=== PATIENT | male | born 1945 | race Caucasian/White ===

== ENCOUNTER 2020-10-18 07:26 | Emergency (ER) | payer OTHER ==
--- OUTSIDE RECORDS SUMMARY | 2020-10-18 07:28 | XMS REPORT | Continuity of Care Document ---
:1945 Author Organization [facility] t Address [address] [place] [address] Care Team Providers Name Role Phone Unavailable Unavailable Unavailable Payers Payer Name Policy Type Policy Number Effective Date Expiration Date S ource Problems This patient has no known problems. Allergies, Adverse Reactions, Alerts Allergy Allergy Status Severity Reaction(s) Onset Inactive Treating Comm ents Source Name Type Date Date Clinician No Known DA Active U 2016-11 [facility] Allergie 14 Clear s 00:00: [place] [address] [place] [address] Medications This patient has no known medications. Procedures This patient has no known procedures. Results Test Description Test Time Test Comments Results Result Comments Source GLUBED 2020-10-13 08:03:00 Test Item Value Reference Range Interpretation Comme nts GLUBED (test code = GLUBED) 108 mg/dL 60-125 N BASIC METABOLIC [id number] 06:38:00 Test Item Value Reference Range Interpretation Comments SODIUM (test code = 136 mmol/L 136-145 N NA) POTASSIUM (test code = 5.2 mmol/L 3.5-5.1 H K) CHLORIDE (test code = 99.0 mmol/L 98-107 N CL) CARBON DIOXIDE (test 24.3 mmol/L 21-32 N code = CO2) GLUCOSE (test code = 168 mg/dL 70-110 H GLU) BLOOD UREA NITROGEN 22 mg/dL 7-18 H (test code = BUN) GLOMERULAR FILTRATION 44.5 >60 Unit o f measure: RATE (test code = GFR) mL/mi n/1.73 [id number] Range:Healthy A dults >90 mL/min/1.73 m2 For Chronic Kidney Disease: St age II Mild Dec rease in GFR 6 0-90 Stage III Moderate Decrea se in GFR 30-59 Stage IV Se [place]incoln Decrease in GFR 15-29 Stage V Kidney Failur e <15 CREATININE (test code 1.54 mg/dL 0.55-1.30 H = CREAT) CALCIUM (test code = 9.1 mg/dL 8.2-10.1 N CA) SPECIMEN COMMENT: POD #[id number] 06:01:00 Test Item Value Reference Range Interpretation Comments HEMOGLOBIN (test code = HGB) 12.5 g/dL 12-16 N HEMATOCRIT (test code = HCT) 36.6 % 37-47 L SPECIMEN COMMENT: POD #[id number] 14:47:00 Test Item Value Reference Range Interpretation Comments GLUBED (test code = GLUBED) 99 mg/dL 60-125 N Novel Coronavirus 2019 [id number] 16:02:00 Test Item Value Reference Range Interpretation Comments Novel Coronavirus Negative Negative Positive r esults are 2019 Inhouse (test indicativ e of the presence code = COVNONPUI) ofSARS-CoV -2 RNA, clinical correlation wit h patient historyand othe r diagnostic info rmation is necessary to determinepatien t infection status. Positiv e results do not rule out bacterial infection or co -infection with other viru ses. Negative result s do not preclude SARS-C oV-2 infection andsh ould not be used as the delmi e basis for patient managementdecis ions. Negative result s must be combined with otherclinical observations, p atient history, and epidemiological information . Detection of SARS-CoV-2 RNA may be affe cted bysample collec tion methods, storag e conditions, and /or stageof infection. Carolin l RNA mutations, vacc inations, antiviraltherap eutics, antibiotics, chemotherapeuti c orimmunosuppres marsha drugs have not been e valuated for effectson d etection. Results are for the identification of SARS-CoV-2 RNA usingthe Urakkamaailma[employer]fi M2000 Sy stem under the FDA Emergen cy UseAuthorizatio n. The testing is perf ormed by personneltraine d in the procedures for the Jaime M2000 molecular diagnostic SARS-CoV-2 assa y in vitro. SPECIMEN COMMENT: NNovel Coronavirus 2019 [id number] 16:02:00 Test Item Value Reference Range Interpretation Comments Novel Coronavirus Negative Negative Positive r esults are 2019 Inhouse (test indicativ e of the presence code = COVNONPUI) ofSARS-CoV -2 RNA, clinical correlation wit h patient historyand othe r diagnostic info rmation is necessary to determinepatien t infection status. Positiv e results do not rule out bacterial infection or co -infection with other viru ses. Negative result s do not preclude SARS-C oV-2 infection andsh ould not be used as the delmi e basis for patient managementdecis ions. Negative result s must be combined with otherclinical observations, p atient history, and epidemiological information . Detection of SARS-CoV-2 RNA may be affe cted bysample collec tion methods, storag e conditions, and /or stageof infection. Carolin l RNA mutations, vacc inations, antiviraltherap eutics, antibiotics, chemotherapeuti c orimmunosuppres marsha drugs have not been e valuated for effectson d etection. Results are for the identification of SARS-CoV-2 RNA usingthe Jaime M2000 Sy stem under the FDA Emergen cy UseAuthorizatio n. The testing is perf ormed by personneltraine d in the procedures for the Jaime M2000 molecular diagnostic SARS-CoV-2 assa y in vitro. SPECIMEN COMMENT: NVITAMIN D 25-HYDROXY (TOTAL)2020-10-06 09:33:00 Test Item Value Reference Range Interpretation Comments VITAMIN D 24.3 ng/mL 30.0-100.0 L Vitamin D defic iency has 25-HYDROXY (TOTAL) been defi aye by the (test code = [place] ofMed icine and VITD25) an Endocrine So ety practice guidel ine as alevel of serum 25-OH vitamin D less than 20 ng/mL (1,2).The Endocrine Society went on to further define vitamin Dinsufficiency as a level between 21 and 29 ng/mL (2).1. IOM (Ins titute of Medicine). 2010 . Dietary reference int akes for calcium and D. [place]: The [employer] .2. Emily MF, Geri NC, Rommel i GRAY, et al. Evaluatio n, treatment, and prevention of vitamin D deficiency: an Endocrine Society clinica l practice guideline. VIRGIL EM. 2010; 96(7):1911-30.P erformed At: [facility] [id number] [place], [place] [id number] Parish Morrow MD Ph:[phone] GLYCOSYLATED HEMOGLOBIN (HA1C)2020-10-05 17:47:00 Test Item Value Reference Range Interpretation Comments GLYCOSYLATED 5.6 % 4.8-5.9 N Any condition t hat shortens HEMOGLOBIN (HA1C) erythocyte survival or (test code = GLYHGB) decreas esmean erythrocyte age (e.g., bhavna very from acute blood los s,hemolytic anemia) will fa lsely lower HGBA1c resultsr egardless of the method used . HGBA1c results from pa nuzhatntswith HbSS, HbCC, and HbSc must be interpreted with cautiongiven th e pathological pr ocesses, including anemi a,increased red cell turnov er, transfusion req uirements, thatadversely i mpact HGBA1c as a marker of long-term glycemiccontrol . Alternative for ms of testing such as fructosaminesho uld be considered for these patients. GLYCOSYLATED HEMOGLOBIN (HA1C)2020-10-05 17:47:00 Test Item Value Reference Range Interpretation Comments GLYCOSYLATED 5.6 % 4.8-5.9 Any condition t hat shortens HEMOGLOBIN (HA1C) erythocyte survival or (test code = GLYHGB) decreas esmean erythrocyte age (e.g., bhavna very from acute blood los s,hemolytic anemai) will fa lsely lower HGBA1c resultsr egardless of the method used . HGBA1c results frompat ients with HbSS, HbCC and HbSc must be interpreted wit hcaution given the patho logical processes, incl uding anemia,increase d red cell turnover, trans fusion requirements, t hatadversely impact HGBA1c a s a marker of long-term glycemiccontrol . Alternative for ms of testing such as fructosaminesho uld be considered for these patients.Any co ndition that shortens erytho cyte survival or dec reasesmean erythrocyte age (e.g., recovery from a cute blood loss,hemolytic anemia) will falsely lower H GBA1c resultsregardle ss of the method used. H GBA1c results from mejia albarran HbSS, HbCC, and HbSc must be interpreted with cautiongiven th e pathological pr ocesses, including anemi a,increased red cell turnov er, transfusion req uirements, thatadversely i mpact HGBA1c as a marker of long-term glycemiccontrol . Alternative for ms of testing such as fructosaminesho uld be considered for these patients.DONE A T: [facility] [id number] [facility] [address] [place], [place] [phone] - USG NDL PLACEMENT (Bxg/Asp)2020-10-05 13:13:00 [facility] : 1945 Sex: M Patient Name: APOLINAR DIETZ Unit No: [id number] EXAMS: CPT CODE: [id number] USG NDL PLACEMENT (Bxg/Asp) 02126 INDICATION: Right knee pain. PROCEDURE: Ultrasound guided cryoanalgesia (Iovera) of the right anterior femoral cutaneous nerve, and the superior and inferior branches of the infrapatellar branch of the saphenous nerve. BINDERY OPERATOR: Dr. Zamorano. MEDICATIONS: 1 % Lidocaine local anesthesia CONTRAST: None. COMPLICATION: None immediately evident. DESCRIPTION: After the procedure, including indication and potential complications had been discussed with the patient and questions answered, written informed consent was obtained. The patient was then takento the ultrasound suite and placed on the table in supine position with their treatment leg fully extended. The skin of the right knee was evaluated sonographically. The skin over the anterior femoral cutaneous nerve, medial femoral cutaneous nerve, and the superior and inferior branches of the infrapatellar branch of the saphenous nerve was marked. The skin was then prepped and draped sterilely. A time out was performed. After achieving 1% Lidocaine local anesthesia, the 55mm Smart Tip Iovera cryoanalgesia probe was inserted into the skin at the sites where the nerves had been identified by ultrasound, and the treatment was initiated. The duration of each treatment cycle was 1 minute and 10 seconds. The patent's skin was cleaned and the wound was covered with a band-aid. The patient was instructed to stand and mobilize the knee joint. No immediate complication were observed. The patient tolerated the procedure well and was subsequently discharged in stable condition with instructions for follow up. IMPRESSION: Cryoanalgesia of the right anterior femoral cutaneous nerve, and the superior and inferior branches of the infrapatellarbranch of the saphenous nerve as above. at 1313 Reported and signed by: Ja Zamorano MD CC: Kranthi Leary MD Technologist: INEZ YOUNG RDMS, RVT Transcribed D/ (2682) [id number] [facility] NAME: APOLINAR DIETZ [id number] [facility] PHYS: Kranthi Paez MD : 1945 AGE: 75 SEX: [place] [address] LOC: Y.RAD PHONE #: [phone] EXAM DATE: 10/05/2020 STATUS: REG CLI FAX #: [phone] RAD #: D/C DT PAGE 1 Signed Report Patient Name: APOLINAR DIETZ Unit No: [id number] EXAMS: CPT CODE: [id number] USG NDL PLACEMENT (Bxg/Asp) 08017 <Continued> Orig Print D/T: S: 10/05/2020 (3479) [facility] NAME: APOLINAR DIETZ [id number] [facility] PHYS: Kranthi Paez MD : 1945 A GE: 75 SEX: M [place] [address] LOC: HERIBERTO PHONE #: [phone] EXAM DATE: 10/05/2020 STATUS: REG CLI FAX #: [phone] RAD #: D/C DT PAGE 2 Signed ReportPROTHROMBIN [id number] 12:53:00 Test Item Value Reference Range Interpretation Comments PROTHROMBIN TIME 10.9 secs 10.1-12.5 N PATIENT (test code = PTP) INTERNATIONAL NORMAL 0.97 <2.0 RECOMME NDED THERAPEUTIC RATIO (test code = RANGE FOR ORAL INR) ANTICOAGULANTTR EATMENT: CONDI TION INRProphylaxis of venous thrombos is in 2.0 - 3.0 high-risk medic al or surgical patientsTreatme nt of venous thrombos is 2.0 - 3.0Prevention o f embolism 2.0 - 3.0Prevention o f recurrent embol ism, or 3.0 - 4. 5 patients with mechanical pros thetic intravascular v armstrong IS PATIENT ON ANTICOAGULANTS ? [facility] been notified if Patient is on Heparin Drip? NOTHROMBOPLASTIN TIME [id number] 12:53:00 Test Item Value Reference Range Interpretation Comments PTT ACTIVATED (test code = APTT) 35.6 secs 24.9-37.0 N IS PATIENT ON ANTICOAGULANTS ? [facility] been notified if Patient is on Heparin Drip? NOCOMPREHENSIVE METABOLIC [id number] 12:33:00 Test Item Value Reference Range Interpretation Comments SODIUM (test code = 139 mmol/L 136-145 N NA) POTASSIUM (test code = 4.2 mmol/L 3.5-5.1 N K) CHLORIDE (test code = 102.0 mmol/L 98-107 N CL) CARBON DIOXIDE (test 26.2 mmol/L 21-32 N code = CO2) GLUCOSE (test code = 114 mg/dL 70-110 H GLU) BLOOD UREA NITROGEN 31 mg/dL 7-18 H (test code = BUN) GLOMERULAR FILTRATION 49.7 >60 Unit o f measure: RATE (test code = GFR) mL/mi n/1.73 [id number] Range:Healthy Adults >90 mL/min/1.73 m2 For Chronic Kidney Disease: St age II Mild Decrease in GFR 60-90 St age III Moderate Decrease in GFR 30-59 Stage IV Severe Decre ase in GFR 15- 29 Stage V Kidney Failure <15 CREATININE (test code 1.40 mg/dL 0.55-1.30 H = CREAT) TOTAL PROTEIN (test 7.4 g/dL 6.4-8.2 N code = PROT) ALBUMIN (test code = 4.1 g/dL 3.4-5.0 N ALB) GLOBULIN (test code = 3.3 g/dL 2.2-4.2 N GLOB) ALBUMIN/GLOBULIN RATIO 1.2 0.7-2.0 N (test code = A/G) CALCIUM (test code = 9.0 mg/dL 8.2-10.1 N CA) BILIRUBIN TOTAL (test 0.80 mg/dL 0.2-1.00 N code = BILT) SGOT/AST (test code = 15.0 U/L 15-37 N AST) SGPT/ALT (test code = 26.0 U/L 12-78 N Please note new ALT) normal range. ALKALINE PHOSPHATASE 96 U/L 46-116 N TOTAL (test code = ALKP) CBC W/AUTO [id number] 11:22:00 Test Item Value Reference Range Interpretation Comments WHITE BLOOD CELL (test code = WBC) 6.6 K/mm3 5.7-10.5 N RED BLOOD CELL (test code = RBC) 4.40 M/mm3 4.2-5.4 N HEMOGLOBIN (test code = HGB) 13.8 g/dL 12-16 N HEMATOCRIT (test code = HCT) 39.9 % 37-47 N MEAN CELL VOLUME (test code = MCV) 91 fL 80-98 N MEAN CELL HGB (test code = MCH) 31.4 pg 27-34 N MEAN CELL HGB CONCENTRATION (test 34.6 g/dL 30.8-34.1 H code = MCHC) RED CELL DISTRIBUTION WIDTH (test 12.2 % 11-16 N code = RDW) PLT (test code = PLT) 197 K/mm3 130-400 N MEAN PLATELET VOLUME (test code = 11.2 fL 8.9-12.1 N MPV) NEUTROPHIL % (test code = NT%) 68.9 % 45-70 N LYMPHOCYTE % (test code = LY%) 18.9 % 20-40 L MONOCYTE % (test code = MO%) 9.8 % 3-10 N EOSINOPHIL % (test code = EO%) 1.8 % 1-5 N BASOPHIL % (test code = BA%) 0.3 % 0.0-1.1 N NEUTROPHIL # (test code = NT#) 4.51 K/mm3 2.00-7.50 N LYMPHOCYTE # (test code = LY#) 1.24 K/mm3 1.50-4.00 L MONOCYTE # (test code = MO#) 0.64 K/mm3 0.2-0.8 N EOSINOPHIL # (test code = EO#) 0.12 K/mm3 0.04-0.4 N BASOPHIL # (test code = BA#) 0.02 K/mm3 0.02-0.10 N MANUAL DIFF REQUIRED (test code = NO MANUAL DIFF MDIFF) NUCLEATED RED BLOOD CELL (test 0 % 0-0 N code = NRBC)
[2020-10-18] MEDS ORDERED: NA CHLORIDE 0.9% 500 ML ONE (08:13)
[2020-10-18 08:27] LABS: Absolute Lymphocytes (CBC) 0.5 K/uL (0.7-4.9); Basophils % 0.1 % (0-1.3); Hematocrit 31.1 % (39.6-49.0); Lymphocytes % 3.5 % (15.3-44.8); MPV 9.1 fL (7.6-11.3); RBC Red Blood Cell Count 3.37 M/uL (4.33-5.43)
[2020-10-18 08:39] LABS: Potassium 4.1 mmol/L (3.5-5.1)
--- NOTE | 2020-10-18 09:03 | RAD REPORT ---
EXAM DESCRIPTION: CT - Head Brain Wo Cont - 10/18/2020 8:37 am CLINICAL HISTORY: fall, weakness, head trauma COMPARISON: No comparisonsNo comparisons TECHNIQUE: Axial 5 mm thick images of the head were obtained without IV contrast. All CT scans are performed using dose optimization technique as appropriate and may include automated exposure control or mA/KV adjustment according to patient size. FINDINGS: No intracranial hemorrhage, mass, edema or shift of mid-line structures. No acute infarcti on changes seen. No abnormal extra-axial fluid collections. Moderate severity atrophy changes are pre sent. Ventricles are in proportion to the amount of volume loss. Chronic ischemic change appears mini mal. Mastoid air cells and visualized portions of the paranasal sinuses are clear. No acute bony findings. IMPRESSION: No hemorrhage, acute infarction or other acute intracranial finding. Moderate severity atrophy with ventricles in proportion to volume loss.
--- NOTE | 2020-10-18 09:05 | RAD REPORT ---
EXAM DESCRIPTION: CT - Thorax Wo Con - 10/18/2020 8:37 am CLINICAL HISTORY: right sided rib pain, fall COMPARISON: No comparisons TECHNIQUE: Axial 5 mm thick images of the chest were obtained without IV contrast. All CT scans are performed using dose optimization technique as appropriate and may include automated exposure control or mA/KV adjustment according to patient size. FINDINGS: No pulmonary contusion or acute lung parenchymal process. Multiple calcified pleural plaqu es are present without associated mass component. No pneumothorax. No abnormal mediastinal or hilar masses or lymphadenopathy seen. No gross aortic or pulmonary artery finding suspected. Assessment is limited in the absence of IV contrast. No chest wall mass or abnormal axillary lymphadenopathy. No rib fracture or acute bone process identifiable. IMPRESSION: No rib fracture, pulmonary contusion or pneumothorax. Calcified pleural plaques without associated soft tissue mass component.
[2020-10-18] MEDS ORDERED: HYDROCODONE/APAP 5/325 MG TAB ONE (10:01)
--- NOTE | 2020-10-18 10:02 | RAD REPORT ---
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 No loosening findings. The joint effusion and soft tissue air densities seen on the lateral vi ew are not outside of normal range given the approximately 1 week postop history. No soft tissue fore ign body. IMPRESSION: No acute bone or joint finding identified. The air and fluid in the soft tissues within normal limits for 1 week postop status.
--- NOTE | 2020-10-18 10:03 | RAD REPORT ---
EXAM DESCRIPTION: RAD - Chest Single View - 10/18/2020 8:16 am CLINICAL HISTORY: CHEST PAIN COMPARISON: None TECHNIQUE: AP portable chest image was obtained 10/18/2020 8:16 am . FINDINGS: Lung volumes are low. No peripheral mass or consolidation. Interstitial pattern is promine nt with baseline unknown. Interstitial pattern is most likely chronic baseline rather than any signif icant infiltrate or edema. Failure and volume overload are not suspected. Heart and vasculature are n ormal. No measurable pleural effusion and no pneumothorax. No acute bony abnormality seen. No acute a ortic findings suspected. IMPRESSION: No pneumothorax, pulmonary contusion or acute traumatic injury to the chest.
[2020-10-18] MEDS ORDERED: VANCOMYCIN/NS 1 gm 1 GM/250 ML BAG IVPB ONE (11:00)
--- NOTE | 2020-10-18 11:02 | EDPHYS ---
Physician Documentation [facility] Name: Brandon Silverio Age: 75 yrs Sex: Male : 1945 Arrival Date: 10/18/2020 Time: 07:26 Bed 19 Private MD: ED Physician Ethan Ruelas HPI: 10/18 10:25 This 75 yrs old Male presents to ER via EMS with complaints of Fall Injury, rn General Weakness. 10:25 Details of fall: The patient fell from a height. Onset: The symptoms/episode rn began/occurred this morning. Associated injuries: The patient sustained injury to the chest, pain with movement. Severity of symptoms: At their worst the symptoms were mild, in the emergency department the symptoms are unchanged. The patient has not experienced similar symptoms in the past. The patient has been recently seen by a physician:. Reports right knee replacement this past Monday, at [facility], has not been eating/drinking since then with generalized weakness/malaise. Reports increased pain to right knee with redness. Not sure if hit head on fall but does report right rib pain with movement and palpation. NO LOC. Remembers all events. . 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 - Social history:: Smoking status: Patient denies any tobacco usage or history of. - Family history:: not pertinent. - Hospitalizations: : Patient was recently seen at. ROS: 10:25 Constitutional: Negative for fever, chills, and weight loss, Eyes: Negative for injury, rn pain, redness, and discharge, Neck: Negative for injury, pain, and swelling, Cardiovascular: Negative for palpitations, and edema, Respiratory: Negative for shortness of breath, cough, wheezing Abdomen/GI: Negative for abdominal pain, nausea, vomiting, diarrhea, and constipation, Back: Negative for injury and pain, MS/Extremity: + right knee pain and swelling Skin: + redness around right knee Neuro: Negative for headache, weakness, numbness, tingling, and seizure. Exam: 10:25 Constitutional: This is a well developed, well nourished patient who is awake, alert, rn and in no acute distress. Head/Face: Normocephalic, atraumatic. Eyes: Pupils equal round and reactive to light, extra-ocular motions intact. ENT: Dry MM, no oral trauma Neck: No vertebral point tenderness. Chest/axilla: Normal chest wall appearance and motion. No crepitus, + mild tenderness right posterior/lateral ribs. Cardiovascular: Regular rate and rhythm. No pulse deficits. Respiratory: No increased work of breathing, no retractions or nasal flaring. Abdomen/GI: Soft, non-tender MS/ Extremity: Pulses equal, no cyanosis. + mild swelling RLE with redness and warmth around right knee, sutures intact, no purulence or drainage. No streaking. + blanching erythema. Neuro: Awake and alert, GCS 15, oriented to person, place, time, and situation. Cranial nerves II-XII grossly intact. Motor strength 4/5 in all extremities. Sensory grossly intact. Vital Signs: 07:36 BP 105 / 71; Pulse 87; Resp 16; Temp 98.8; Pulse Ox 96% on R/A; Weight 86.18 kg; Height iw 5 ft. 11 in. (180.34 cm); Pain 9/10; 08:30 BP 102 / 59; Pulse 88; Resp 17; Pulse Ox 96% ; rb3 10:30 BP 95 / 68; Pulse 81; Resp 18; Pulse Ox 95% ; rb3 11:30 BP 101 / 58; Pulse 82; Resp 16; Pulse Ox 99% ; rb3 12:30 BP 102 / 58; Pulse 84; Resp 16; Pulse Ox 98% ; rb3 13:40 BP 102 / 59; Pulse 82; Resp 17; Pulse Ox 97% ; rb3 14:20 BP 94 / 53; Pulse 80; Resp 17; Pulse Ox 16% ; rb3 07:36 Body Mass Index 26.50 (86.18 kg, 180.34 cm) iw MDM: 07:30 Patient medically screened. rn 10:08 ED course: Consulted with on-call physician for Dr. Leary, reports Dr. Leary has rn privileges at [facility], will need to be transferred for evaluation and consultation, admit to hospitalist, transfer initiated. . 10:59 Differential diagnosis: contusion, fracture, post-op infection, DVT, rib fracture. Data rn reviewed: vital signs, nurses notes, lab test result(s), radiologic studies, CT scan, plain films, and as a result, I will admit patient. Counseling: I had a detailed discussion with the patient and/or guardian regarding: the historical points, exam findings, and any diagnostic results supporting the discharge/admit diagnosis, lab results, radiology results, the need to transfer to another facility, for higher level of care, [facility] does not immediately have the required specialist. Response to treatment: the patient's symptoms have mildly improved after treatment, and as a result, I will admit patient. 10/18 07:37 Order name: CBC with Diff; Complete Time: 09:18 rn 10/18 07:37 Order name: Basic Metabolic Panel; Complete Time: 09:18 rn 10/18 07:37 Order name: XRAY Knee RIGHT 3 view; Complete Time: 10:06 rn 10/18 07:37 Order name: Procalcitonin; Complete Time: 09:18 rn 10/18 07:37 Order name: Blood Culture Adult (2) rn 10/18 07:37 Order name: CT Head Brain wo Cont; Complete Time: 09:18 rn 10/18 07:37 Order name: IV Start; Complete Time: 08:00 rn 10/18 07:37 Order name: CT Chest Wo Con; Complete Time: 09:18 rn 10/18 07:37 Order name: XRAY Chest (1 view); Complete Time: 10:06 rn 10/18 10:31 Order name: Extremity Venous Uni Ltd US; Complete Time: 14:20 rn Administered Medications: 08:21 Drug: NS 0.9% 500 ml Route: IV; Rate: bolus; Site: left antecubital; rb3 09:13 Follow up: IV Status: Completed infusion rb3 09:49 Drug: Romeo 5 mg-325 mg 1 tabs Route: PO; rb3 10:30 Follow up: Response: No adverse reaction; Pain is decreased rb3 11:00 Drug: vancoMYCIN 1 grams Route: IVPB; Infused Over: 2 hrs; Site: left antecubital; rb3 13:20 Follow up: Response: No adverse reaction; IV Status: Completed infusion rb3 Disposition: 10/18/20 11:02 Transfer ordered to [facility]. Diagnosis are Acute kidney failure, Weakness, Possible post-operative infection/cellulitis. - Reason for transfer: Higher level of care. - Accepting physician is . - Condition is Stable. - Problem is new. - Symptoms have improved. Signatures: Dispatcher [employer] EDGabby Abdullahi RN RN Ethan Santos MD MD rn Acob, MARKEL Cee RN Sondra Calero RN RN rb3 Corrections: (The following items were deleted from the chart) 10:28 10:25 Constitutional: Negative for fever, chills, and weight loss, Eyes: Negative for rn injury, pain, redness, and discharge, Neck: Negative for injury, pain, and swelling, Cardiovascular: Negative for palpitations, and edema, Respiratory: Negative for shortness of breath, cough, wheezing Abdomen/GI: Negative for abdominal pain, nausea, vomiting, diarrhea, and constipation, Back: Negative for injury and pain, MS/Extremity: + right knee pain and swelling Skin: + redness around right knee Neuro: Negative for headache, weakness, numbness, tingling, and seizure, rn 14:39 11:02 10/18/2020 11:02 Transfer ordered to [facility]. ca1 Diagnosis is Acute kidney failure; Weakness; Possible post-operative infection/cellulitis. Reason for transfer: Higher level of care. Accepting physician is . Condition is Stable. Problem is new. Symptoms have improved. rn
--- NOTE | 2020-10-18 11:02 | ER ---
Nurse's Notes [facility] Name: Brandon Silverio Age: 75 yrs Sex: Male : 1945 Arrival Date: 10/18/2020 Time: 07:26 Bed 19 Private MD: Diagnosis: Acute kidney failure;Weakness;Possible post-operative infection/cellulitis Presentation: 10/18 07:30 Coronavirus screen: At this time, the client does not indicate any symptoms associated rb3 with coronavirus-19. Initial Sepsis Screen: Does the patient meet any 2 criteria? No. Patient's initial sepsis screen is negative. Does the patient have a suspected source of infection? Yes: Other: surgerical wound. Risk Assessment: Do you want to hurt yourself or someone else? Patient reports no desire to harm self or others. Onset of symptoms was October 12, 2020. 07:36 Chief complaint: EMS states: pt fell out of bed last night, had recent right knee iw surgery on Monday, has been feeling weak and tired for a few days and doesn't have much of an appetite since the surgery , pt c/o pain to right rib area since the fall. Ebola Screen: Patient negative for fever greater than or equal to 101.5 degrees Fahrenheit, and additional compatible Ebola Virus Disease symptoms Patient denies exposure to infectious person. Patient denies travel to an Ebola-affected area in the 21 days before illness onset. No symptoms or risks identified at this time. 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 - Social history:: Smoking status: Patient denies any tobacco usage or history of. - Family history:: not pertinent. - Hospitalizations: : Patient was recently seen at. Screenin:30 Abuse screen: Denies threats or abuse. Nutritional screening: No deficits noted. rb3 Tuberculosis screening: No symptoms or risk factors identified. 07:30 Fall Risk Fall in past 12 months (25 points). Secondary diagnosis (15 points) impaired rb3 mobility, IV access (20 points). Ambulatory Aid- Crutches/Cane/Walker (15 pts). Gait- Impaired (20 pts.). Mental Status- Oriented to own ability (0 pts). Total Hutson Fall Scale indicates High Risk Score (45 or more points). Fall prevention measures have been instituted. Side Rails Up X 2 Placed Close to Nursing Station 1:1 Attendant Assigned Frequent Obs/Assessments Occuring Family Present and informed to notify staff if the need to leave the bedside As available patient and family educated on Fall Prevention Program and Strategies. Assessment: 07:30 General: Appears in no apparent distress. Behavior is calm, cooperative, Reports rb3 fatigue for monday. Denies fever. Pain: Complains of pain in right ribs Pain currently is 5 out of 10 on a pain scale. Pain began last night. 07:30 Neuro: Level of Consciousness is awake, alert, obeys commands, Oriented to person, rb3 place, time, situation. Neuro: Reports weakness in generalized. Cardiovascular: Capillary refill < 3 seconds Patient's skin is warm and dry. Respiratory: Airway is patent Respiratory effort is even, unlabored, Respiratory pattern is regular, symmetrical. GI: No signs and/or symptoms were reported involving the gastrointestinal system. : No signs and/or symptoms were reported regarding the genitourinary system. Derm: Bruising that is dark purple, green, yellow, on right knee. 08:30 Reassessment: Patient appears in no apparent distress at this time. No changes from rb3 previously documented assessment. 09:00 Reassessment: Pt. requested water or ice, re-educated on the need to stay NPO. rb3 09:30 Reassessment: Patient appears in no apparent distress at this time. Patient and/or rb3 family updated on plan of care and expected duration. Pain level reassessed. Patient is alert, oriented x 3, equal unlabored respirations, skin warm/dry/pink. 10:19 Reassessment: Sent fax to pharmacy for Vancomycin. rb3 10:19 Reassessment: Patient appears in no apparent distress at this time. No changes from rb3 previously documented assessment. Pt. requested water or ice chips, re-educated on the need to stay NPO due to possible required interventions at the other facility. 11:30 Reassessment: Patient appears in no apparent distress at this time. Patient and/or rb3 family updated on plan of care and expected duration. Pain level reassessed. Patient is alert, oriented x 3, equal unlabored respirations, skin warm/dry/pink. Family at the bedside. 12:20 Reassessment: Patient appears in no apparent distress at this time. No changes from rb3 previously documented assessment. 13:20 Reassessment: Patient appears in no apparent distress at this time. Patient and/or rb3 family updated on plan of care and expected duration. Pain level reassessed. Patient is alert, oriented x 3, equal unlabored respirations, skin warm/dry/pink. 13:25 Reassessment: Called [facility] to give report, was left on hold. rb3 13:40 Reassessment: Gave report to MARKEL Thomas at the [facility]. Information from the [facility] was rb3 given. All questions asked and answered. 14:23 Reassessment: Patient appears in no apparent distress at this time. No changes from rb3 previously documented assessment. Family remains at the bedside. Vital Signs: 07:36 BP 105 / 71; Pulse 87; Resp 16; Temp 98.8; Pulse Ox 96% on R/A; Weight 86.18 kg; Height iw 5 ft. 11 in. (180.34 cm); Pain 9/10; 08:30 BP 102 / 59; Pulse 88; Resp 17; Pulse Ox 96% ; rb3 10:30 BP 95 / 68; Pulse 81; Resp 18; Pulse Ox 95% ; rb3 11:30 BP 101 / 58; Pulse 82; Resp 16; Pulse Ox 99% ; rb3 12:30 BP 102 / 58; Pulse 84; Resp 16; Pulse Ox 98% ; rb3 13:40 BP 102 / 59; Pulse 82; Resp 17; Pulse Ox 97% ; rb3 14:20 BP 94 / 53; Pulse 80; Resp 17; Pulse Ox 16% ; rb3 07:36 Body Mass Index 26.50 (86.18 kg, 180.34 cm) iw ED Course: 07:26 Patient arrived in ED. iw 07:30 Ethan Ruelas MD is Attending Physician. rn 07:30 Patient has correct armband on for positive identification. Bed in low position. Call rb3 light in reach. Side rails up X2. Pulse ox on. NIBP on. Warm blanket given. 07:38 Triage completed. iw 07:41 Arm band placed on. iw 07:45 Missed attempt(s): 20 gauge in right antecubital area. Bleeding controlled, band aid dh3 applied, catheter tip intact. 07:50 First set of blood cultures drawn by me. Inserted saline lock: 20 gauge in left dh3 antecubital area, using aseptic technique. Blood collected. 07:55 Sondra Agarwal, RN is Primary Nurse. rb3 07:55 Initial lab(s) drawn, by me, sent to lab. Second set of blood cultures drawn by me. dh3 08:16 XRAY Knee RIGHT 3 view In Process Unspecified. EDMS 08:16 XRAY Chest (1 view) In Process Unspecified. EDMS 08:37 CT Head Brain wo Cont In Process Unspecified. EDMS 08:37 CT Chest Wo Con In Process Unspecified. EDMS 09:[address] Leary answering service at at [phone]/ they will page the medical scientific liaison who eb is covering for Dr. Leary. 09:[address] Lebron the orthopedic doctor covering Dr. Leary with Dr. Ruelas for eb patient consultation. 09:55 initiated a transfer with Sneha from the [facility] transfer center. eb 11:15 called [facility] to check on status of transfer/ cindy Goldstein they are waiting for eb internal medicine to call back. they will call us back as soon as they can get them on the phone. 12:17 Extremity Venous Uni Ltd US In Process Unspecified. EDMS 12:[address] Giordano the hospitalist medical scientific liaison for [facility] with Dr. Ruelas for patient eb transfer consultation. 12:36 administrative approval pending a bed given by Alex Spicer/ patient has been eb accepted to [facility]/ Dr. Giordano has accepted the patient in transfer. 14:39 No provider procedures requiring assistance completed. Patient transferred, IV remains ca1 in place. Administered Medications: 08:21 Drug: NS 0.9% 500 ml Route: IV; Rate: bolus; Site: left antecubital; rb3 09:13 Follow up: IV Status: Completed infusion rb3 09:49 Drug: [place] 5 mg-325 mg 1 tabs Route: PO; rb3 10:30 Follow up: Response: No adverse reaction; Pain is decreased rb3 11:00 Drug: vancoMYCIN 1 grams Route: IVPB; Infused Over: 2 hrs; Site: left antecubital; rb3 13:20 Follow up: Response: No adverse reaction; IV Status: Completed infusion rb3 Outcome: 11:02 ER care complete, transfer ordered by . rn 14:39 Transferred by ground EMS to [facility], Transfer form completed. X-rays ca1 sent w/ patient. 14:39 Condition: stable 14:39 Instructed on the need for transfer. 14:39 Patient left the ED. ca1 Signatures: Dispatcher [employer] EDGabby Abdullahi RN RN iw Ethan Ruelas MD MD rn Herrera, Deanna [facility] Cathi Arnett Cheryl RN RN ca1 Sondra Agarwal RN RN rb3 Corrections: (The following items were deleted from the chart) 11:18 09:55 initiated a transfer with the [facility]. maribel lópez
--- NOTE | 2020-10-18 13:03 | RAD REPORT ---
EXAM DESCRIPTION: US - Extremity Venous Uni Ltd - 10/18/2020 12:16 pm CLINICAL HISTORY: Pain;Swelling COMPARISON: None. TECHNIQUE: Real-time sonographic evaluation of the right lower extremity deep venous systems was per formed. FINDINGS: Normal compressibility, flow augmentation, phasic flow and spontaneous flow are identified in the right lower extremity common femoral, superficial femoral, popliteal and posterior tibial vei ns. No intraluminal filling defects seen. IMPRESSION: No DVT in the right lower extremity.
[2020-10-18 17:08] VITALS: TEMP 98.8
[2020-10-18 17:23] VITALS: BP 94/53; O2SAT 16
== END 2020-10-18 14:39 | disposition short-term general hospital (02) ==
LOC: ER 07:26
DX: N17.9 Acute kidney failure, unspecified (principal); I10 Essential (primary) hypertension; E11.9 Type 2 diabetes mellitus without complications; Z79.01 Long term (current) use of anticoagulants
CPT/HCPCS: 96365; 96361; 87040 ×2; 85025; 80048; 36415; 84145; 70450; 71250; 71045; 73562; 93971; 99285; 96366; J3370; J7040